=== PATIENT | male | born 1995 | race Two or more races ===

== ENCOUNTER 2023-05-08 20:39 | Emergency (ER) | payer OTHER ==
[~2023-05-08] VITALS: Ht 177.8 cm; Wt 102.5 kg
== END 2023-05-08 22:35 | disposition home or self-care (01) ==
LOC: ER 20:39
DX: R53.81 Other malaise (principal); D69.6 Thrombocytopenia, unspecified; R50.9 Fever, unspecified; Z20.822 Contact with and (suspected) exposure to COVID-19

== ENCOUNTER 2023-07-22 13:29 | Emergency (ER) | payer OTHER ==
[~2023-07-22] VITALS: Ht 177.8 cm; Wt 99.8 kg
[2023-07-22 15:02] LABS: HEMATOCRIT 42.1 % (39.0-48.0); HEMOGLOBIN 13.8 g/dL (13-16.00); MEAN CORPUSCULAR HEMOGLOBIN 22.5 pg (27.00-32.0); MEAN CORPUSCULAR HGB CONC 32.7 g/dl (32.0-36.0); PLATELET COUNT 189 K/uL (150-450); RED BLOOD COUNT 6.11 M/uL (4.00-6.00); RED CELL DISTRIBUTION WIDTH 15.2 % (11.5-14.5)
[2023-07-22 15:22] LABS: PH,URINE 5.5 (5.0-8.0); URINE APPEARANCE Clear; URINE BILIRRUBIN Negative (NEGATIVE); URINE BLOOD Negative; URINE COLOR Yellow; URINE LEUKOCYTE Negative; URINE NITRATE Negative; URINE PROTEIN Negative (NEGATIVE); URINE UROBILINOGEN 0.2 E.U./dl
[2023-07-22 15:42] LABS: URINE BACTERIA 3.7 uL (0.0-1933); URINE EPITHELIAL CELLS 1.3 uL (0.0-38.8); URINE GLUCOSE 500 MG/DL (NEGATIVE)
[2023-07-22 16:02] LABS: CALCIUM 9.1 mg/dL (8.5-10.1); CREATININE SERUM 1.18 mg/dL (0.70-1.30); GFR 72.98; POTASSIUM 4.56 mEq/L (3.5-5.1)
[2023-07-22 20:09] LABS: CALCIUM 9.6 mg/dL (8.5-10.1); CREATININE SERUM 1.04 mg/dL (0.70-1.30); GFR 84.43; POTASSIUM 3.45 mEq/L (3.5-5.1)
== END 2023-07-22 21:40 | disposition home or self-care (01) ==
LOC: ER 13:29
PROVIDERS: Emergency Medicine
DX: R73.9 Hyperglycemia, unspecified (principal); R10.9 Unspecified abdominal pain

== ENCOUNTER → 2024-12-31 | Emergency (ER) | payer OTHER ==
[~2024-12-31] VITALS: Ht 175.3 cm; Wt 102.1 kg
== END | disposition left against medical advice (07) ==
LOC: ER 21:55
DX: Z53.21 Procedure and treatment not carried out due to patient leaving prior to being seen by health care provider (principal)

== ENCOUNTER 2025-04-16 04:08 | Emergency (ER) | payer OTHER ==
[~2025-04-16] VITALS: Ht 177.8 cm; Wt 95.3 kg
[2025-04-16] MEDS ORDERED: METFORMIN HCL500 M3 PO (04:19)
[2025-04-16] MEDS ORDERED: KETOROLAC TROMETHAMINE 30 MG VIAL IV STA (06:00)
[2025-04-16] MEDS ORDERED: BUTALB/ACETAMINOPHEN/CAFFEINE 1 TAB TABLET PO STA (06:01)
[2025-04-16] MEDS ORDERED: DEXAMETHASONE SODIUM PHOSPHATE 4 MG/ML VIAL IV STA (06:01)
[2025-04-16 06:50] LABS: BASO % 0.6 % (0.1-1.2); EOS # 0.24 (0.04-0.54); EOS % 2.4 % (0.7-7.0); LYMPH # 2.73 (1.18-3.74); LYMPH % 27.2 % (19.3-53.1); MEAN PLATELET VOLUME 11.50 fl (9.4-12.4); MONO # 0.79 (0.24-0.82); MONO % 7.9 % (4.7-12.5); NEUT # 6.14 (1.56-6.13); NEUT % 61.2 % (34.0-71.1); RED CELL DISTRIBUTION WIDTH 14.7 % (11.6-14.4)
[2025-04-16 07:08] LABS: BUN CREA RATIO 14.0 (7.0-25.0); CREATININE SERUM 1.12 mg/dL (0.70-1.30); GFR 76.98; GLUCOSE FASTING 188.0 mg/dL (65-100); OSMOLALITY SERUM 287.0 MOSM/KG (275-295)
== END 2025-04-16 08:03 | disposition home or self-care (01) ==
LOC: ER 04:08
DX: G43.909 Migraine, unspecified, not intractable, without status migrainosus (principal); R53.83 Other fatigue

== ENCOUNTER → 2025-07-19 | Emergency (ER) | payer OTHER ==
[~2025-07-19] VITALS: Ht 177.8 cm; Wt 81.6 kg
[~2025-07-19] MED LIST: METFORMIN HCL500 M3 PO
== END | disposition left against medical advice (07) ==
LOC: ER 02:43
DX: Z53.21 Procedure and treatment not carried out due to patient leaving prior to being seen by health care provider (principal)

== ENCOUNTER 2025-09-18 18:50 | Emergency (ER) | payer OTHER ==
[~2025-09-18] VITALS: Ht 170.2 cm; Wt 90.7 kg
[2025-09-18 19:17] VITALS: BP 135/86; O2SAT 99
[2025-09-18] MEDS ORDERED: DEXAMETHASONE SODIUM PHOSPHATE 4 MG/ML VIAL IM ONE (19:45)
[2025-09-18] MEDS ORDERED: KETOROLAC TROMETHAMINE 30 MG VIAL IM ONE (19:45)
[2025-09-18] MEDS ORDERED: KETOROLAC TROMETHAMINE 30 MG VIAL ONE (20:08)
[2025-09-18] MEDS ORDERED: DEXAMETHASONE SODIUM PHOSPHATE 4 MG/ML VIAL ONE (20:08)
[2025-09-18] MEDS ORDERED: NORFLEX100MG PO (22:24)
[2025-09-18] MEDS ORDERED: KETO10TA2 PO (22:24)
== END 2025-09-18 22:30 | disposition home or self-care (01) ==
LOC: ER 18:50
DX: M54.59 Other low back pain (principal); V43.52XA Car driver injured in collision with other type car in traffic accident, initial encounter; Y93.89 Activity, other specified; Y92.413 State road as the place of occurrence of the external cause; E11.9 Type 2 diabetes mellitus without complications; Z79.84 Long term (current) use of oral hypoglycemic drugs